=== PATIENT | female | born 1985 | race Asian ===

== ENCOUNTER → 2016-12-09 | Outpatient (REF) | payer BC ==
[2016-12-09 13:53] LABS: BASO % 0.5 % (0.0-1.0); EOS # 0.2 K/mm3 (0.0-0.50); EOS % 2.5 % (0.0-3.0); LARGE UNSTAINED CELL # 0.2 K/mm3 (0.0-0.4); LARGE UNSTAINED CELL % 1.8 % (0.0-4.0); LYMPH # 2.3 K/mm3 (1.5-4.5); LYMPH % 24.8 % (24.0-44.0); MEAN CORPUSCULAR HEMOGLOBIN 31.7 pg (27.0-33.0); MEAN CORPUSCULAR HGB CONC 33.1 g/dl (32.0-36.5); MEAN CORPUSCULAR VOLUME 95.8 fl (80.0-96.0); MONO # 0.3 K/mm3 (0.0-0.8); MONO % 3.6 % (0.0-5.0); NEUTROPHILS % 66.8 % (36.0-66.0); PLATELET COUNT, AUTOMATED 270 k/mm3 (150-450); RED CELL DISTRIBUTION WIDTH 12.9 % (11.5-14.5)
[2016-12-09 14:24] LABS: ALBUMIN 3.5 GM/DL (3.2-5.2); ALBUMIN/GLOBULIN RATIO 0.88 (1.00-1.93); ALKALINE PHOSPHATASE 68 U/L (45-117); ALT/SGPT 25 U/L (12-78); ANION GAP 10 MEQ/L (8-16); AST/SGOT 10 U/L (15-37); BILIRUBIN,TOTAL 0.3 MG/DL (0.2-1.0); BLOOD UREA NITROGEN 19 MG/DL (7-18); CARBON DIOXIDE LEVEL 26 MEQ/L (21-32); CHLORIDE LEVEL 105 MEQ/L (98-107); CHOLESTEROL LEVEL 215 MG/DL (<200); CREATININE FOR GFR 0.89 MG/DL (0.55-1.02); FREE T4 1.25 NG/DL (0.76-1.46); GLOMERULAR FILTRATION RATE > 60.0 (>60); GLUCOSE, FASTING 80 MG/DL (70-105); POTASSIUM SERUM 4.3 MEQ/L (3.5-5.1); SODIUM LEVEL 141 MEQ/L (136-145); TOTAL PROTEIN 7.5 GM/DL (6.4-8.2); TRIGLYCERIDES LEVEL 112 MG/DL (<150)
== END ==
LOC: M SFHCPLAZ 10:36
PROVIDERS: ATTEND Family Medicine
DX: I10 Essential (primary) hypertension (principal); E55.9 Vitamin D deficiency, unspecified

== ENCOUNTER → 2017-02-25 | Outpatient (REF) | payer BC | LOC: M WUC 17:01 | PROVIDERS: ATTEND Physician Assistant | DX: N39.0 Urinary tract infection, site not specified (principal) ==

== ENCOUNTER → 2017-03-18 | Outpatient (REF) | payer BC ==
[2017-03-18 18:49] LABS: MEAN CORPUSCULAR HEMOGLOBIN 30.8 pg (27.0-33.0); MEAN CORPUSCULAR HGB CONC 33.5 g/dl (32.0-36.5); MEAN CORPUSCULAR VOLUME 91.7 fl (80.0-96.0); WHITE BLOOD COUNT 6.8 K/mm3 (4.0-10.0)
[2017-03-18 20:01] LABS: HCG, SERUM QUANTITATIVE 3766 MIU/ML
== END ==
LOC: M LAB REF 17:25
PROVIDERS: ATTEND Advanced Practice Midwife
DX: O36.80X0 Pregnancy with inconclusive fetal viability, not applicable or unspecified (principal); O99.280 Endocrine, nutritional and metabolic diseases complicating pregnancy, unspecified trimester; E03.9 Hypothyroidism, unspecified; Z3A.00 Weeks of gestation of pregnancy not specified

== ENCOUNTER → 2017-05-06 | Outpatient (REF) | payer BC ==
[2017-05-06 18:02] LABS: FREE T4 0.95 NG/DL (0.76-1.46)
== END ==
LOC: M LAB REF 16:32
PROVIDERS: ATTEND Advanced Practice Midwife
DX: E03.9 Hypothyroidism, unspecified (principal)

== ENCOUNTER → 2017-05-08 | Outpatient (REF) | payer BC ==
[2017-05-08 14:48] LABS: VITAMIN B12 LEVEL 330 PG/ML (247-911)
[2017-05-08 15:04] LABS: ALBUMIN 3.2 GM/DL (3.2-5.2); ALBUMIN/GLOBULIN RATIO 0.91 (1.00-1.93); ALKALINE PHOSPHATASE 52 U/L (45-117); ALT/SGPT 28 U/L (12-78); ANION GAP 9 MEQ/L (8-16); AST/SGOT 11 U/L (15-37); BILIRUBIN,TOTAL 0.3 MG/DL (0.2-1.0); BLOOD UREA NITROGEN 9 MG/DL (7-18); CARBON DIOXIDE LEVEL 25 MEQ/L (21-32); CHLORIDE LEVEL 104 MEQ/L (98-107); CREATININE FOR GFR 0.43 MG/DL (0.55-1.02); FERRITIN 14 NG/ML (8-252); GLOMERULAR FILTRATION RATE > 60.0 (>60); GLUCOSE, FASTING 89 MG/DL (70-105); MAGNESIUM LEVEL 1.9 MG/DL (1.8-2.4); PERCENT SATURATION 37.6 % (13.2-45.0); POTASSIUM SERUM 4.3 MEQ/L (3.5-5.1); SODIUM LEVEL 138 MEQ/L (136-145); TOTAL IRON BINDING CAPACITY 303 UG/DL (250-450); TOTAL PROTEIN 6.7 GM/DL (6.4-8.2)
[2017-05-11 10:52] LABS: ALBUMIN 3.63 GM/DL (3.29-5.55); ALBUMIN % 54.2 % (55.8-66.1); GAMMA GLOBULIN % 14.5 % (11.1-18.8)
[2017-05-12 10:36] LABS: PRETREATED FOLATE FOR RBCFOL 14.1 NG/ML
== END ==
LOC: M SFHCPLAZ 12:06
PROVIDERS: ATTEND Family Medicine
DX: D75.89 Other specified diseases of blood and blood-forming organs (principal); I10 Essential (primary) hypertension; E66.9 Obesity, unspecified

== ENCOUNTER → 2017-05-11 | Outpatient (CLI) | payer BC ==
[2017-05-11 18:55] LABS: ALT/SGPT 23 U/L (12-78); AST/SGOT 9 U/L (15-37); BILIRUBIN,TOTAL 0.2 MG/DL (0.2-1.0); CREATININE FOR GFR 0.47 MG/DL (0.55-1.02); GLOMERULAR FILTRATION RATE > 60.0 (>60); URIC ACID 3.4 MG/DL (2.6-6.0)
== END ==
LOC: M LAB 17:59
PROVIDERS: ATTEND Advanced Practice Midwife
DX: O10.011 Pre-existing essential hypertension complicating pregnancy, first trimester (principal)

== ENCOUNTER → 2017-07-15 | Outpatient (REF) | payer BC ==
[2017-07-15 14:07] LABS: FREE T4 0.9 NG/DL (0.76-1.46)
== END ==
LOC: M LAB REF 13:21
PROVIDERS: ATTEND Advanced Practice Midwife
DX: E03.9 Hypothyroidism, unspecified (principal)

== ENCOUNTER → 2017-08-27 | Outpatient (CLI) | payer BC ==
[2017-08-27 18:42] LABS: GLUCOSE CHALLENGE TEST 1 HOUR 107 MG/DL (LESS THAN 140)
[2017-08-27 20:26] LABS: HEMATOCRIT 31.7 % (36.0-47.0); HEMOGLOBIN 10.4 g/dl (12.0-16.0); MEAN CORPUSCULAR HEMOGLOBIN 30.7 pg (27.0-33.0); MEAN CORPUSCULAR HGB CONC 32.8 g/dl (32.0-36.5); MEAN CORPUSCULAR VOLUME 93.5 fl (80.0-96.0); PLATELET COUNT, AUTOMATED 241 10^3/uL (150-450); RED BLOOD COUNT 3.39 10^6/uL (4.00-5.40); RED CELL DISTRIBUTION WIDTH 13.4 % (11.5-14.5); WHITE BLOOD COUNT 8.4 10^3/uL (4.0-10.0)
[2017-08-31 08:57] LABS: AB SCREEN (INDIRECT COOMBS)VIS 1 1
== END ==
LOC: M WUC 12:36
DX: O09.892 Supervision of other high risk pregnancies, second trimester (principal); Z67.11 Type A blood, Rh negative; Z3A.25 25 weeks gestation of pregnancy
CPT/HCPCS: 82950

== ENCOUNTER → 2017-09-10 | Outpatient (REF) | payer BC ==
[2017-09-10 13:51] LABS: FREE T4 0.99 NG/DL (0.76-1.46)
== END ==
LOC: M LAB REF 13:04
DX: E03.9 Hypothyroidism, unspecified (principal)

== ENCOUNTER → 2017-10-14 | Outpatient (REF) | payer BC | LOC: M LAB REF 13:01 | DX: O09.893 Supervision of other high risk pregnancies, third trimester (principal); Z3A.00 Weeks of gestation of pregnancy not specified | CPT/HCPCS: 87081; 87186 ==

== ENCOUNTER → 2017-10-28 | Outpatient (REF) | payer BC ==
[2017-10-28 14:34] LABS: FREE T4 0.93 NG/DL (0.76-1.46)
== END ==
LOC: M LAB REF 12:57
DX: E03.9 Hypothyroidism, unspecified (principal)
CPT/HCPCS: 84443

== ENCOUNTER 2017-11-13 06:17 | Inpatient (IN) | payer BC ==
[2017-11-13] MEDS: LACTATED RINGER'S 1000 ML IV (04:00)
[2017-11-13 08:37] LABS: HEMATOCRIT 32.6 % (36.0-47.0); HEMOGLOBIN 11.1 g/dl (12.0-15.5); MEAN CORPUSCULAR HEMOGLOBIN 30.7 pg (27.0-33.0); MEAN CORPUSCULAR VOLUME 90.1 fl (80.0-96.0); PLATELET COUNT, AUTOMATED 225 10^3/uL (150-450); RED BLOOD COUNT 3.62 10^6/uL (4.00-5.40); RED CELL DISTRIBUTION WIDTH 13.2 % (11.5-14.5); WHITE BLOOD COUNT 8.8 10^3/uL (4.0-10.0)
[2017-11-13] MEDS: VANCOMYCIN HCL 1,000 MG, VIAL MATE ADAPTER 1 EACH in D5W 250 ML IV ×2 (08:55→20:55)
[2017-11-13] MEDS: miSOPROStol 50 MCG 1/2 TAB (S0191) PO ×3 (09:04→17:05)
[2017-11-13 09:06] LABS: ALT/SGPT 20 U/L (12-78); AST/SGOT 19 U/L (7-37); BILIRUBIN,TOTAL 0.3 MG/DL (0.2-1.0); CREATININE FOR GFR 0.61 MG/DL (0.55-1.30); GLOMERULAR FILTRATION RATE > 60.0 (>60); LDH LACTATE DEHYDROGENASE 166 U/L (84-246); URIC ACID 5.6 MG/DL (2.6-6.0)
[2017-11-13 09:31] LABS: AMPHETAMINES URINE REFLEX NEGATIVE (NEGATIVE); BARBITURATES URINE REFLEX NEGATIVE (NEGATIVE); BENZODIAZEPINES URINE REFLEX NEGATIVE (NEGATIVE); CANNABINOIDS URINE REFLEX NEGATIVE (NEGATIVE); COCAINE METABOLITE URINE REFLE NEGATIVE (NEGATIVE); METHADONE URINE REFLEX NEGATIVE (NEGATIVE); OPIATES URINE REFLEX NEGATIVE (NEGATIVE); PHENCYCLIDINE URINE REFLEX NEGATIVE (NEGATIVE)
[2017-11-13] MEDS: LABETALOL 200 MG TAB PO (20:54)
[2017-11-13] MEDS: LR 1,000 ML IV (21:01)
[2017-11-13] MEDS ORDERED: OXYTOCIN 30 UNITS IN 0.9% NaCl 500ML IV BAG (J2590) As Ordered (21:03)
[2017-11-13] MEDS: OXYTOCIN DRIP 30 UNITS in APPROPRIATE DILUENT 1 EA IV (21:09)
[2017-11-13] MEDS: PROMETHAZINE INJ 25 MG/ML VIAL (J2550) IM (22:24)
[2017-11-13] MEDS: BUTORPHANOL 2 MG/ML INJ (J0595) IV (22:25)
[2017-11-14] MEDS ORDERED: FENTANYL 2MCG/ML ROPIVACAINE 0.2% IN 0.9% NACL 200ML IVBAG As Ordered (04:10)
[2017-11-14] MEDS: LR 1,000 ML IV (05:01)
[2017-11-14] MEDS ORDERED: ePHEDrine SULFATE 25 MG/5 ML(5MG/ML) SYRINGE IV (05:15)
[2017-11-14] MEDS ORDERED: EPIDURAL COMMENT XX (05:15)
[2017-11-14] MEDS ORDERED: FENTANYL/ROPIVACAINE/NACL BAG 200 ML EPIDURAL (05:15)
[2017-11-14] MEDS ORDERED: LACTATED RINGER'S 1000 ML IV (05:15)
[2017-11-14] MEDS ORDERED: EPIDURAL/PCA KEYS XX (05:15)
[2017-11-14] MEDS ORDERED: ONDANSETRON 4MG/2ML VIAL (J2405) IV (05:15)
[2017-11-14] MEDS ORDERED: NALOXONE INJ 0.4 MG/1 ML VIAL (J2310) IV (05:15)
[2017-11-14] MEDS ORDERED: diphenhydrAMINE INJ 50MG/ML VIAL (J1200) IV (05:15)
[2017-11-14] MEDS ORDERED: REFRIGERATOR IV KEYS XX (05:15)
[2017-11-14] MEDS: LEVOTHYROXINE 37.5MCG PER 1/2TAB (0.0375MG) PO (06:23)
[2017-11-14] MEDS: PRENATAL VITAMINS CHEWABLE TABLET PO (09:00)
[2017-11-14] MEDS: VANCOMYCIN HCL 1,000 MG, VIAL MATE ADAPTER 1 EACH in D5W 250 ML IV (09:15)
[2017-11-14] MEDS ORDERED: DIBUCAINE 1% OINTMENT 30GM TOP (10:15)
[2017-11-14] MEDS ORDERED: MEASLES,MUMPS,RUBELLA VACCINE INJ (MMR-II) (90707) SC (10:15)
[2017-11-14] MEDS ORDERED: METHYLERGONOVINE MALEATE 0.2 MG TAB PO (10:15)
[2017-11-14] MEDS ORDERED: ANUSOL HC CREAM 30GM TOP (10:15)
[2017-11-14] MEDS: IBUPROFEN 800 MG TAB PO ×2 (10:42→20:06)
[2017-11-14] MEDS: LABETALOL 200 MG TAB PO ×2 (10:43→21:28)
[2017-11-14] MEDS: OXYTOCIN DRIP 30 UNITS in APPROPRIATE DILUENT 1 EA IV (19:31)
[2017-11-14] MEDS: ACETAMINOPHEN 500 MG TAB PO (21:29)
[2017-11-15] MEDS: ACETAMINOPHEN 500 MG TAB PO ×3 (03:31→22:01)
[2017-11-15] MEDS: IBUPROFEN 800 MG TAB PO ×2 (05:50→16:08)
[2017-11-15] MEDS: LEVOTHYROXINE 37.5MCG PER 1/2TAB (0.0375MG) PO (05:50)
[2017-11-15] MEDS: PRENATAL VITAMINS CHEWABLE TABLET PO (08:46)
[2017-11-15] MEDS: LABETALOL 200 MG TAB PO ×2 (08:46→21:57)
[2017-11-15] MEDS: DOCUSATE SODIUM 100 MG CAP PO (14:17)
[2017-11-15 17:09] LABS: FETAL SCREEN PROF. 1 1
[2017-11-15] MEDS: RHOGAM 300 MCG (1500 IU) INJ (J2790) IM (17:28)
[2017-11-16] MEDS: IBUPROFEN 800 MG TAB PO (06:20)
[2017-11-16] MEDS: LEVOTHYROXINE 37.5MCG PER 1/2TAB (0.0375MG) PO (06:21)
[2017-11-16] MEDS: PRENATAL VITAMINS CHEWABLE TABLET PO (09:55)
[2017-11-16] MEDS: ADACEL/BOOSTRIX VACCINE (DIPHTH/PERTUSS/ACELL/TETANUS)0.5ML SYR (90715) IM (09:55)
[2017-11-16] MEDS: LABETALOL 200 MG TAB PO (09:56)
== END 2017-11-16 12:20 | disposition home or self-care (01) | DRG 560 ==
LOC: M LDI 06:17 → M OBS 11-14 12:19
PROC: 3E0P7GC Introduction of Other Therapeutic Substance into Female Reproductive, Via Natural or Artificial Opening (ICD-10-PCS; 2017-11-13)
PROC: 10E0XZZ Delivery of Products of Conception, External Approach (ICD-10-PCS; principal; 2017-11-14)
DX: O10.02 Pre-existing essential hypertension complicating childbirth (principal); E03.9 Hypothyroidism, unspecified; O99.284 Endocrine, nutritional and metabolic diseases complicating childbirth; Z3A.39 39 weeks gestation of pregnancy; O99.824 Streptococcus B carrier state complicating childbirth; O69.1XX0 Labor and delivery complicated by cord around neck, with compression, not applicable or unspecified; Z37.0 Single live birth

== ENCOUNTER → 2017-12-25 | Outpatient (REF) | payer BC ==
[2017-12-25 17:38] LABS: BASO # 0.1 10^3/uL (0.0-0.2); BASO % 0.6 % (0.0-1.0); EOS # 0.6 10^3/uL (0.0-0.50); HEMATOCRIT 35.1 % (36.0-47.0); HEMOGLOBIN 11.3 g/dl (12.0-15.5); IMMATURE GRANULOCYTE % 0.2 % (0-3.0); LYMPH # 2.9 10^3/uL (1.5-4.5); LYMPH % 35.5 % (24.0-44.0); MEAN CORPUSCULAR HGB CONC 32.2 g/dl (32.0-36.5); MEAN CORPUSCULAR VOLUME 90.2 fl (80.0-96.0); MONO # 0.6 10^3/uL (0.0-0.8); MONO % 7.5 % (0.0-5.0); NEUTROPHILS % 49.2 % (36.0-66.0); PLATELET COUNT, AUTOMATED 273 10^3/uL (150-450); RED BLOOD COUNT 3.89 10^6/uL (4.00-5.40); RED CELL DISTRIBUTION WIDTH 12.6 % (11.5-14.5); RETICULOCYTE # 54.8 10^9/L (17-77); RETICULOCYTE % 1.4 % (0.5-1.5)
[2017-12-25 18:16] LABS: ESTIMATED AVERAGE GLUCOSE 88 MG/DL (60-110); HEMOGLOBIN A1c 4.7 %
[2017-12-25 18:34] LABS: MALB URINE SIEMENS 20.3 MG/L; MAU/CREAT RATIO 8.9 MCG/MG (0.0-30.0)
[2017-12-25 18:55] LABS: APPEARANCE, URINE HAZY (CLEAR); BACTERIA, URINE AUTO NEGATIVE (NEGATIVE); BILIRUBIN, URINE AUTO NEGATIVE (NEGATIVE); BLOOD, URINE BLOOD 1+ (NEGATIVE); COLOR, URINE YELLOW (YELLOW); GLUCOSE, URINE (UA) AUTO NEGATIVE (NEGATIVE); KETONE, URINE AUTO NEGATIVE (NEGATIVE); LEUKOCYTE ESTERASE, URINE AUTO 2+ (NEGATIVE); MUCUS, URINE SMALL (NEGATIVE); NITRITE, URINE AUTO NEGATIVE (NEGATIVE); PROTEIN, URINE AUTO NEGATIVE (NEGATIVE); RBC, URINE AUTO 2 /HPF (0-3); SPECIFIC GRAVITY URINE AUTO 1.025 (1.002-1.035); SQUAMOUS EPITHELIAL CELL UR AU 9 /HPF (0-6); UROBILINOGEN, URINE AUTO 0.2 mg/dL (0.0-2.0); WBC, URINE AUTO 18 /HPF (0-3)
[2017-12-25 18:57] LABS: ALBUMIN 3.7 GM/DL (3.2-5.2); ALBUMIN/GLOBULIN RATIO 1.06 (1.00-1.93); ALKALINE PHOSPHATASE 82 U/L (45-117); ALT/SGPT 28 U/L (12-78); ANION GAP 8 MEQ/L (8-16); AST/SGOT 16 U/L (7-37); BILIRUBIN,TOTAL 0.4 MG/DL (0.2-1.0); BLOOD UREA NITROGEN 13 MG/DL (7-18); CALCIUM LEVEL 8.7 MG/DL (8.5-10.1); CARBON DIOXIDE LEVEL 28 MEQ/L (21-32); CHLORIDE LEVEL 105 MEQ/L (98-107); CREATININE FOR GFR 0.77 MG/DL (0.55-1.30); FREE T4 0.95 NG/DL (0.76-1.46); GLOMERULAR FILTRATION RATE > 60.0 (>60); GLUCOSE, FASTING 69 MG/DL (70-100); POTASSIUM SERUM 4.3 MEQ/L (3.5-5.1); SODIUM LEVEL 141 MEQ/L (136-145); TOTAL PROTEIN 7.2 GM/DL (6.4-8.2)
[2017-12-25 19:17] LABS: VITAMIN B12 LEVEL 874 PG/ML (247-911)
[2017-12-30 17:41] LABS: INSULIN LEVEL 9.6 uIU/mL (2.6-24.9)
== END ==
LOC: M SFHCPLAZ 14:55
DX: R73.01 Impaired fasting glucose (principal); D75.89 Other specified diseases of blood and blood-forming organs; I10 Essential (primary) hypertension; E03.9 Hypothyroidism, unspecified; D50.9 Iron deficiency anemia, unspecified
CPT/HCPCS: 83525

== ENCOUNTER → 2018-01-01 | Outpatient (REF) | payer BC | LOC: M SFHCPLAZ 17:19 | DX: R30.0 Dysuria (principal) | CPT/HCPCS: 87086 ==

== ENCOUNTER → 2018-01-11 | Outpatient (REF) | payer BC | LOC: M LAB REF 09:11 | DX: J06.9 Acute upper respiratory infection, unspecified (principal) | CPT/HCPCS: 87081 ==

== ENCOUNTER → 2018-01-27 | Outpatient (CLI) | payer BC, MEDICAID ==
[~2018-01-27] MED LIST: PROHANCE 279.3MG/ML 15ML VIAL (A9576) As Ordered; PROHANCE 279.3MG/ML 5ML VIAL (A9576) As Ordered
== END ==
LOC: M RAD 15:39
DX: R20.2 Paresthesia of skin (principal)
CPT/HCPCS: A9576

== ENCOUNTER 2018-01-29 09:01 | Day surgery (SDC) | payer BC, MEDICAID ==
[2018-01-29] MEDS ORDERED: NEOSTIGMINE 10 MG/10 ML VIAL (J2710) As Ordered ×2 (09:12)
[2018-01-29] MEDS ORDERED: PROPOFOL 200 MG/20 ML VIAL As Ordered ×2 (09:12)
[2018-01-29] MEDS ORDERED: ONDANSETRON 4MG/2ML VIAL (J2405) As Ordered ×2 (09:12)
[2018-01-29] MEDS ORDERED: KETOROLAC 60 MG/2 ML VIAL (J1885) As Ordered ×2 (09:12)
[2018-01-29] MEDS ORDERED: dexameTHASONE 4 MG/ML 1ML VIAL (J1100) As Ordered ×2 (09:12)
[2018-01-29] MEDS ORDERED: LIDOCAINE 2% INJ 100 MG/5 ML SDV (FOR ANES.) As Ordered ×2 (09:12)
[2018-01-29] MEDS ORDERED: GLYCOPYRROLATE INJ 0.2 MG/ML 2 ML VIAL As Ordered ×2 (09:12)
[2018-01-29] MEDS ORDERED: MIDAZOLAM INJ 2 MG/2 ML VIAL (J2250) As Ordered ×2 (09:13)
[2018-01-29] MEDS ORDERED: fentaNYL 100 MCG/2 ML INJECTION (J3010) As Ordered ×4 (09:13→13:34)
[2018-01-29] MEDS ORDERED: ROCURONIUM BROMIDE 50 MG/5 ML VIAL As Ordered ×2 (09:14)
[2018-01-29] MEDS ORDERED: ceFAZolin SOD 1 GM in D5W MINI-BAG PLUS 50 ML IV (09:15)
[2018-01-29] MEDS ORDERED: LIDOCAINE 1% MDV 20ML VIAL SQ ×2 (09:15)
[2018-01-29 09:29] LABS: HEMATOCRIT 34.3 % (36.0-47.0); HEMOGLOBIN 11.3 g/dl (12.0-15.5); MEAN CORPUSCULAR HEMOGLOBIN 28.5 pg (27.0-33.0); MEAN CORPUSCULAR HGB CONC 32.9 g/dl (32.0-36.5); MEAN CORPUSCULAR VOLUME 86.6 fl (80.0-96.0); PLATELET COUNT, AUTOMATED 277 10^3/uL (150-450); RED BLOOD COUNT 3.96 10^6/uL (4.00-5.40); RED CELL DISTRIBUTION WIDTH 12.4 % (11.5-14.5); WHITE BLOOD COUNT 7.8 10^3/uL (4.0-10.0)
[2018-01-29 10:25] LABS: CONTROL LINE UCG INT CTR LINE PRESENT; URINE PREG TEST NEGATIVE (NEGATIVE)
[2018-01-29] MEDS: LABETALOL 200 MG TAB PO ×2 (10:43)
[2018-01-29] MEDS: LR 1,000 ML IV ×2 (10:44)
[2018-01-29] MEDS: ACETAMINOPHEN 650 MG SUPP As Ordered ×2 (13:00)
[2018-01-29] MEDS: BUPIVACAINE/EPIN 0.25% 30 ML VIAL As Ordered ×4 (13:30)
[2018-01-29] MEDS ORDERED: NORCO, ANEXSIA 5/325MG TABLET (HYDROcodone/ACETAMINOPHEN) As Ordered ×2 (13:34)
[2018-01-29] MEDS: NORCO, ANEXSIA 5/325MG TABLET (HYDROcodone/ACETAMINOPHEN) PO ×4 (13:35→14:05)
[2018-01-29] MEDS: fentaNYL 100 MCG/2 ML INJECTION (J3010) IV ×8 (13:35→13:50)
[2018-01-29] MEDS ORDERED: ONDANSETRON 4MG/2ML VIAL (J2405) IV ×2 (13:45)
[2018-01-29] MEDS ORDERED: LR 1,000 ML IV ×2 (13:45)
[2018-01-29] MEDS ORDERED: PERCOCET 5MG/325MG TAB PO ×2 (13:45)
[2018-01-29] MEDS ORDERED: IBUPROFEN 800 MG TAB PO ×2 (15:00)
== END 2018-01-29 16:25 | disposition home or self-care (01) ==
LOC: M SDC 09:01
DX: Z30.2 Encounter for sterilization (principal); I10 Essential (primary) hypertension; E03.9 Hypothyroidism, unspecified; M50.30 Other cervical disc degeneration, unspecified cervical region; R56.9 Unspecified convulsions; G43.909 Migraine, unspecified, not intractable, without status migrainosus; Z88.0 Allergy status to penicillin; Z79.899 Other long term (current) drug therapy
CPT/HCPCS: 58671

== ENCOUNTER → 2018-02-10 | Outpatient (CLI) | payer BC, MEDICAID ==
[~2018-02-10] MED LIST changes: +GASTROGRAFIN SOLUTION 30ML (Q9963) As Ordered; +ISOVUE-370 76% 100ML VIAL (Q9967) As Ordered; -PROHANCE 279.3MG/ML 15ML VIAL (A9576) As Ordered; -PROHANCE 279.3MG/ML 5ML VIAL (A9576) As Ordered
== END ==
LOC: M RAD 14:49
DX: R20.2 Paresthesia of skin (principal); M50.221 Other cervical disc displacement at C4-C5 level; M47.892 Other spondylosis, cervical region
CPT/HCPCS: 72141

== ENCOUNTER → 2018-04-15 | Outpatient (CLI) | payer MEDICAID, BC | LOC: M RAD 14:30 | DX: N63.22 Unspecified lump in the left breast, upper inner quadrant (principal) | CPT/HCPCS: 76642 ==

== ENCOUNTER → 2018-05-14 | Outpatient (REF) | payer MEDICAID ==
[2018-05-14 17:34] LABS: BASO # 0.1 10^3/uL (0.0-0.2); BASO % 0.8 % (0.0-1.0); EOS # 0.5 10^3/uL (0.0-0.50); EOS % 6.2 % (0.0-3.0); HEMATOCRIT 36.7 % (36.0-47.0); HEMOGLOBIN 11.5 g/dl (12.0-15.5); IMMATURE GRANULOCYTE % 0.4 % (0-3.0); LYMPH # 2.7 10^3/uL (1.5-4.5); LYMPH % 35.3 % (24.0-44.0); MEAN CORPUSCULAR HEMOGLOBIN 27.4 pg (27.0-33.0); MEAN CORPUSCULAR HGB CONC 31.3 g/dl (32.0-36.5); MEAN CORPUSCULAR VOLUME 87.4 fl (80.0-96.0); MONO # 0.6 10^3/uL (0.0-0.8); MONO % 8.3 % (0.0-5.0); NEUTROPHILS # 3.7 10^3/uL (1.8-7.7); PLATELET COUNT, AUTOMATED 305 10^3/uL (150-450); RED CELL DISTRIBUTION WIDTH 14.4 % (11.5-14.5); RETIC HEMOGLOBIN EQUIVALENT 31.8 pg (24-36); RETICULOCYTE # 44.1 10^9/L (17-77); RETICULOCYTE % 1.1 % (0.5-1.5); WHITE BLOOD COUNT 7.6 10^3/uL (4.0-10.0)
[2018-05-14 17:52] LABS: ESTIMATED AVERAGE GLUCOSE 105 MG/DL (60-110); HEMOGLOBIN A1c 5.3 %
[2018-05-14 17:56] LABS: ALBUMIN 3.8 GM/DL (3.2-5.2); ALBUMIN/GLOBULIN RATIO 1.06 (1.00-1.93); ALKALINE PHOSPHATASE 63 U/L (45-117); ALT/SGPT 41 U/L (12-78); ANION GAP 9 MEQ/L (8-16); AST/SGOT 19 U/L (7-37); BILIRUBIN,TOTAL 0.3 MG/DL (0.2-1.0); BLOOD UREA NITROGEN 15 MG/DL (7-18); C REACTIVE PROTEIN QUANTITATIV 0.34 MG/DL (0.00-0.30); CALCIUM LEVEL 9.3 MG/DL (8.5-10.1); CARBON DIOXIDE LEVEL 28 MEQ/L (21-32); CHLORIDE LEVEL 105 MEQ/L (98-107); CREATININE FOR GFR 0.66 MG/DL (0.55-1.30); GLOMERULAR FILTRATION RATE > 60.0 (>60); GLUCOSE, FASTING 77 MG/DL (70-100); POTASSIUM SERUM 4.6 MEQ/L (3.5-5.1); PTH INTACT 47.8 PG/ML (18.5-88.0); SODIUM LEVEL 142 MEQ/L (136-145); TOTAL PROTEIN 7.4 GM/DL (6.4-8.2)
[2018-05-14 19:29] LABS: ERYTHROCYTE SEDIMENTATION RATE 26 mm/hr (0-20)
[2018-05-18 00:21] LABS: ANA (HEP2) Negative (.)
[2018-05-18 10:32] LABS: DRVV SCREEN 40.8 SEC
== END ==
LOC: M SFHCPLAZ 15:31
DX: D50.9 Iron deficiency anemia, unspecified (principal); R73.01 Impaired fasting glucose; I10 Essential (primary) hypertension; E55.9 Vitamin D deficiency, unspecified; Z87.898 Personal history of other specified conditions

== ENCOUNTER → 2018-05-19 | Outpatient (REF) | payer MEDICAID ==
[2018-05-19 13:59] LABS: RHEUMATOID FACTOR QUANT < 10.0 IU/ML (<15.0); TOTAL PROTEIN 7.2 GM/DL (6.4-8.2)
[2018-05-19 14:35] LABS: ERYTHROCYTE SEDIMENTATION RATE 18 mm/hr (0-20)
[2018-05-20 12:52] LABS: ALBUMIN 3.95 GM/DL (3.29-5.55); ALBUMIN % 54.9 % (55.8-66.1); ALPHA-1-GLOBULIN % 4.1 % (2.9-4.9); ALPHA-2-GLOBULINS 0.81 GM/DL (0.42-0.99); ALPHA-2-GLOBULINS % 11.3 % (7.1-11.8); BETA-1-GLOBULINS 0.48 GM/DL (0.28-0.60); BETA-1-GLOBULINS % 6.6 % (4.7-7.2); BETA-2-GLOBULINS 0.51 GM/DL (0.19-0.55); BETA-2-GLOBULINS % 7.1 % (3.2-6.5); GAMMA GLOBULINS 1.15 GM/DL (0.65-1.58)
[2018-05-23 14:07] LABS: ANTI DOUBLE STRAND-DNA AB 1 IU/mL (0-9); ANTINUCLEAR ANTIBODIES DIRECT Negative (Negative); CERULOPLASMIN 30.9 mg/dL (19.0-39.0); COPPER PLASMA 135 ug/dL (72-166); LEAD BLOOD ADULT <1 ug/dL (0-4); MERCURY LEVEL None Detected ug/L (0.0-14.9); SJOGREN'S ANTI SS-A <0.2 AI (0.0-0.9); SJOGREN'S ANTI SS-B <0.2 AI (0.0-0.9); VITAMIN B1 LEVEL WHOLE BLOOD 113.8 nmol/L (66.5-200.0); VITAMIN B6,PYRIDOXAL PHOSPHATE 5.6 ug/L (2.0-32.8); VITAMIN E(ALPHA TOCOPHEROL) 8.7 mg/L (5.9-19.4); VITAMIN E(GAMMA TOCOPHEROL) 1.4 mg/L (0.7-4.9)
== END ==
LOC: M LABNEURO 10:15
DX: R20.0 Anesthesia of skin (principal)
CPT/HCPCS: 82525

== ENCOUNTER → 2018-08-24 | Outpatient (CLI) | payer MEDICAID ==
[~2018-08-24] MED LIST changes: +ANTA500C PO; +B121000T PO; -GASTROGRAFIN SOLUTION 30ML (Q9963) As Ordered; +IBUP-1114 PO; -ISOVUE-370 76% 100ML VIAL (Q9967) As Ordered; +LABE20TAB PO; +LEVO25TA5 PO; +MAPA500T2 PO; +PRENTAB9 PO; +VITA-110 PO; +VITA100067 PO; +VITA100072 PO
--- NOTE | 2018-09-06 00:38 | ECWPNPC ---
PATIENT NAME: RONIT GUZMAN : 1985 GENDER: FEMALE VISIT DATE: 08/24/2018 DISCHARGE DATE: 08/24/18 1648 VISIT LOCKED DATE TIME: PHYSICIAN: SHANT SELF MD PHYSICIAN PAGER NO: [phone] RESOURCE: SHANT SELF MD REASON FOR APPOINTMENT 1. PRE OP SPINAL TAP HISTORY OF PRESENT ILLNESS HISTORY OF PRESENT ILLNESS: PAIN THE PATIENT DESCRIBES THE PAIN... 33 YEAR OLD FEMALE PATIENT WITH A HISTORY OF NEUROLOGICAL CHANGES. THE PATIENT WAS REFERRED TO US BY DR. PASTRANA FOR A SPINAL TAP AND IS HERE TODAY FOR A PRE SEDATION PHYSICAL. PATIENT DENIES UNEXPLAINABLE WEIGHT LOSS, FEVER, CHILLS, NEW CHANGES ON HER URINARY OR BOWEL CONTROL. FALL RISK SCREENING: SCREENING :NO FALLS IN THE PAST YEAR CURRENT MEDICATIONS TAKING VITAMIN D (CHOLECALCIFEROL) 5000 TABLET 1 TABLET ORALLY DAILY TAKING FERROUS SULFATE 325 (65 FE) MG TABLET 1 TABLET ORALLY ONCE A DAY TAKING VITAMIN B12 1000 MCG TABLET EXTENDED RELEASE 1 TABLET ORALLY ONCE A DAY TAKING TIZANIDINE HCL 2 MG CAPSULE 1 CAPSULE NEEDED ORALLY THREE TIMES A DAY PRN SPASM TAKING CELECOXIB 200 MG CAPSULE 1 CAPSULE WITH FOOD ORALLY ONCE A DAY TAKING LEVOTHYROXINE SODIUM 25 MCG TABLET 1.5 TABLET ON AN EMPTY STOMACH IN THE MORNING ORALLY ONCE A DAY TAKING LABETALOL HCL 100 MG TABLET 1 TABLET ORALLY TWICE A DAY TAKING BACTROBAN 2 % CREAM 1 APPLICATION TO AFFECTED AREA EXTERNALLY BID TO FACE/NECK/CHEST AND INTRANASAL NOT-TAKING COLACE 100 MG CAPSULE 1 CAPSULE ORALLY BID NOT-TAKING HIBICLENS 4 % LIQUID DIRECTED EXTERNALLY DAILY C PUMP BOTTLE MEDICATION LIST REVIEWED AND RECONCILED WITH THE PATIENT PAST MEDICAL HISTORY HYPERTENSION MIGRAINE HEADACHES, COMMON TYPE IFG OBESITY RESTLESS LEG SYNDROME ALLERGIC RHINITIS DEPRESSION/PANIC DISORDER/INSOMNIA IRON DEFICIENCY ANEMIA HYPOTHYROIDISM-01/2014 -TPO AB CERVICAL DJD-ML MODERATE LOSIS C C4/5 CENTRAL HNP AND C5/6 L BROAD HNP AND C6/7 L POSTEROLATERAL FOCAL HNP ? R UPPER THORACIC ZOSTER 06/2017 DXED/RXED BY VITAMIN D DEFICIENCY ALLERGIES PENICILLIN (FOR ALLERGIES USE ONLY): RASH: ALLERGY LINZESS: DIARRHEA: SIDE EFFECTS SURGICAL HISTORY CHOLECYSTECTOMY TUBES CLAMPED-DR. SAUCEDA[facility] 01/29/18 FAMILY HISTORY FATHER: MOTHER: ALIVE, HYPOTHYROID 3 BROTHER(S) - HEALTHY. 3 SON(S) , 1 DAUGHTER(S) - HEALTHY. DAD - SUICIDE. SOCIAL HISTORY GENERAL: TOBACCO USE ARE YOU A:NONSMOKER BMI CARE GOAL FOLLOW-UP ABOVE NORMAL BMI FOLLOW-UPGIVING ENCOURAGEMENT TO EXERCISE ALCOHOL SCREENING DID YOU HAVE A DRINK CONTAINING ALCOHOL IN THE PAST YEAR?YES HOW OFTEN DID YOU HAVE A DRINK CONTAINING ALCOHOL IN THE PAST YEAR?TWO TO FOUR TIMES A MONTH (2 POINTS) HOW MANY DRINKS DID YOU HAVE ON A TYPICAL DAY WHEN YOU WERE DRINKING IN THE PAST YEAR?3 OR 4 (1 POINT) HOW OFTEN DID YOU HAVE SIX OR MORE DRINKS ON ONE OCCASION IN THE PAST YEAR?NEVER (0 POINTS) POINTS3 INTERPRETATIONPOSITIVE SEXUAL HX HAD SEX IN THE LAST 12 MONTHS (VAGINAL, ORAL, OR ANAL)?YES WITHMEN ONLY USE PROTECTION?YES HOW OFTEN?MOST OF THE TIME HAVE YOU EVER HAD AN STD?NO ADVENTIST ADVENTIST NO PENTECOSTALISM BELIEFS THAT WOULD IMPACT HEALTH CARE. LANGUAGE LANGUAGES SPOKEN:MALAYSIAN LEARNING BARRIERS / SPECIAL NEEDS CHANGE FROM LAST VISIT?NO BARRIERS TO LEARNING?NO HEARING IMPAIRED?NO VISION IMPAIRED?YES :CORRECTIVE LENSES DOMESTIC VIOLENCE DO YOU FEEL SAFE IN YOUR ENVIRONMENT?YES PAIN CLINIC PFS, CLERGY, PUBLIC HEALTH REFERRALS HAS THE PATIENT BEEN EDUCATED REGARDING HIS/HER PLAN OF CARE?YES HAS THE PATIENT BEEN EDUCATED REGARDING PAIN, THE RISK FOR PAIN, THE IMPORTANCE OF EFFECTIVE PAIN MANAGEMENT, AND THE PAIN ASSESSMENT PROCESS?YES ADVANCE DIRECTIVE ADVANCE DIRECTIVE DISCUSSED WITH PATIENT:YES PT HAS NO ADVANCED DIRECTIVES, DECLINES INFORMATION OR ASSISTANCE AT THIS TIME REVIEWED WITH PATIENT 08/24/18 1601 LAS. HOSPITALIZATION/MAJOR DIAGNOSTIC PROCEDURE ABOVE -NORMAL PNC 11/2017 REVIEW OF SYSTEMS REVIEWED BY: PROVIDER: SHANT SELF MD . CONSTITUTIONAL: ANY CHANGE IN YOUR MEDICAL CONDITION? NO . CHILLS NO . FEVER NO . INFECTION: DO YOU HAVE NEW INFECTIONS? NO . DO YOU HAVE HISTORY OF MRSA? NO . MUSCULOSKELETAL: ANY NEW PATTERNS OF PAIN OR NUMBNESS? NO . GASTROENTEROLOGY: ANY NEW CHANGE IN BOWEL CONTROL? NO . GENITOURINARY: ANY NEW CHANGE IN BLADDER CONTROL? NO . IS THERE A CHANCE YOU COULD BE ? NO . HEMATOLOGY/LYMPH: DO YOU TAKE ANY BLOOD THINNERS? (FOR EXAMPLE- COUMADIN, PLAVIX, AGGRENOX, PLATEL, PRADAXA, OR XARELTO) NO . WHEN WAS YOUR LAST DOSE? DATE: TIME: . NEUROLOGY: HAVE YOU FALLEN IN THE PAST 12 MONTHS? NO . ANY NEW EXTREMITY NUMBNESS OR WEAKNESS? NO . CARDIOLOGY: DO YOU HAVE A PACEMAKER OR DEFIBRILLATOR? NO . RESPIRATORY: HAVE YOU BEEN SICK IN THE PAST WEEK? NO . FEVER NO . FLU LIKE SYMPTOMS? NO . COUGH NO . INTEGUMENTARY: DO YOU HAVE ANY RASHES OR OPEN SORES? NO . ALLERGIC/IMMUNO: ARE YOU ALLERGIC TO IV DYE? NO . ANY NEW ALLERGIES? NO . PSYCHIATRIC: DO YOU HAVE THOUGHTS OF HURTING YOURSELF OR SOMEONE ELSE? NO . ARE YOU ABUSED, NEGLECTED, OR IN AN UNSAFE ENVIRONMENT? NO . ENDOCRINOLOGY: ARE YOU DIABETIC? NO . OTHER: DO YOU NEED ANY PRESCRIPTIONS? NO . IF YES, PLEASE LIST: ____ . ANY NEW PROBLEMS WITH YOUR MEDICATIONS? NO . WHEN DID YOU LAST EAT? ____ . WHEN DID YOU LAST DRINK? ____ . WHAT DID YOU LAST DRINK? ____ . NAME OF PERSON DRIVING YOU HOME? ____ . DO YOU HAVE ANY OTHER QUESTIONS OR CONCERNS PT HERE FOR PRE SPINAL TAP VISIT . VITAL SIGNS WT 208.6 LBS, HT 63 IN, BMI 36.95 INDEX, BP 114/83 MM HG, HR 125 /MIN, RR 18 /MIN, TEMP 98.6 F, OXYGEN SAT % 97%, SAFE IN ENV? (Y/N) YES, NA INITIALS AW 1552, REVIEWED BY: CE. EXAMINATION GENERAL EXAMINATION: PATIENT IS ALERT O X 3 AND COOPERATIVE. LUNGS CLEAR, TO AUSCULTATION. HEART: NO MURMURS OR GALLOPS; FACIAL CRANIAL NERVES ARE GROSSLY NORMAL. GOOD SYMMETRY OF FACIAL MUSCLE MOVEMENT. NORMAL VISUAL VEGA. PATIENT HAS DIFFICULTY SITTING DUE TO TAILBONE PAIN. ASSESSMENTS NEUROLOGICAL SYMPTOMS - R29.90 (PRIMARY) MS PROTOCOL. TREATMENT NEUROLOGICAL SYMPTOMS CLINICAL NOTES: WE DISCUSSED SEVERAL ISSUES WITH MRS. GUZMAN'S CASE. THE PATIENT WILL COME IN FOR A SPINAL TAP IN A FEW WEEKS. WE DISCUSSED THE BENEFITS AND RISKS OF THE PROCEDURE AND THE PATIENT WOULD LIKE TO PROCEED. INSTRUCTIONS WERE GIVEN, QUESTIONS WERE ANSWERED, PATIENT REPORTS UNDERSTANDING AND AGREES WITH THE PLAN. I, ILIA ISLAS, DOCUMENTED THE ABOVE INFORMATION ACTING A SCRIBE FOR DR. SELF. I HAVE REVIEWED THE ABOVE DOCUMENT, WRITTEN BY ILIA SHIN AND I VERIFY THAT IT IS ACCURATE. PREVENTIVE MEDICINE PAIN CLINIC TEACHING: PROCEDURE TEACHING PT GIVEN WRITTEN AND VERBAL PRE-PROCEDURE INSTRUCTIONS FOR SPINAL TAP. PT VERBALIZES UNDERSTANDING OF ALL INSTRUCTIONS. TARYN MILIAN 08/24/2018 4:49:03 PM > . PROCEDURE CODES FA211 ESTABILISHED PATIENT [facility] FACILITY CHARGE G8427 CURRENT MEDS W/DOSAGES DOCUMENTED G8730 PAIN ASSESS POS TOOL F/U PLAN DOC DISPOSITION & COMMUNICATION FOLLOW UP 3 WEEKS ELECTRONICALLY SIGNED BY SHANT SELF MD, MD ON 09/05/2018 AT 06:52 PM EST DISCLAIMER : THIS IS A VISIT SUMMARY EXTRACTED FROM THE [employer] CHART. IT IS NOT A COPY OF THE [employer] PROGRESS NOTE. JOSE
== END ==
LOC: M PAIN 16:00
PROVIDERS: ATTEND Anesthesiology
DX: R29.90 Unspecified symptoms and signs involving the nervous system (principal); I10 Essential (primary) hypertension; G43.009 Migraine without aura, not intractable, without status migrainosus; F32.9 Major depressive disorder, single episode, unspecified; F41.0 Panic disorder [episodic paroxysmal anxiety]; G47.00 Insomnia, unspecified; D50.9 Iron deficiency anemia, unspecified; E03.9 Hypothyroidism, unspecified; E55.9 Vitamin D deficiency, unspecified; E66.9 Obesity, unspecified; Z68.36 Body mass index [BMI] 36.0-36.9, adult; Z88.0 Allergy status to penicillin; Z88.8 Allergy status to other drugs, medicaments and biological substances; Z79.899 Other long term (current) drug therapy

== ENCOUNTER → 2018-10-06 | Outpatient (CLI) | payer MEDICAID ==
[~2018-10-06] MED LIST changes: +LIDOCAINE 1% SDV INJ 30 ML VIAL As Ordered ONE; +MIDAZOLAM INJ 2 MG/2 ML VIAL (J2250) As Ordered ONE; +fentaNYL 100 MCG/2 ML INJECTION (J3010) As Ordered ONE
[2018-10-06 16:47] LABS: APPEARANCE, CSF CLEAR (CLEAR); COLOR, CSF COLORLESS (COLORLESS); CSF TUBE# CELL CNT TUBE 3
[2018-10-06 16:48] LABS: CSF TUBE# GLU TUBE 1; CSF TUBE# TP TUBE 1; GLUCOSE CSF 53 MG/DL (40-75); TOTAL PROTEIN,CSF 40 MG/DL (15-45)
--- NOTE | 2018-10-17 00:55 | ECWPNPC ---
PATIENT NAME: RONIT GUZMAN : 1985 GENDER: FEMALE VISIT DATE: 10/06/2018 DISCHARGE DATE: 10/06/18 1614 VISIT LOCKED DATE TIME: PHYSICIAN: SHANT SELF MD PHYSICIAN PAGER NO: [phone] RESOURCE: SHANT SELF MD REASON FOR APPOINTMENT 1. SPINAL TAP HISTORY OF PRESENT ILLNESS HISTORY OF PRESENT ILLNESS: PAIN THE PATIENT DESCRIBES THE PAIN... FALL RISK SCREENING: SCREENING : NO FALLS IN THE PAST YEAR. CURRENT MEDICATIONS TAKING VITAMIN D (CHOLECALCIFEROL) 5000 TABLET 1 TABLET ORALLY DAILY, NOTES: 10/06 599 TAKING COLACE 100 MG CAPSULE 1 CAPSULE ORALLY BID NEEDED, NOTES: NONE RECENT TAKING TIZANIDINE HCL 2 MG CAPSULE 1 CAPSULE NEEDED ORALLY THREE TIMES A DAY PRN SPASM, NOTES: NONE RECENT TAKING LEVOTHYROXINE SODIUM 25 MCG TABLET 1.5 TABLET ON AN EMPTY STOMACH IN THE MORNING ORALLY ONCE A DAY, NOTES: 10/06 599 TAKING LABETALOL HCL 100 MG TABLET 1 TABLET ORALLY TWICE A DAY, NOTES: 10/06 599 TAKING BACTROBAN 2 % CREAM 1 APPLICATION TO AFFECTED AREA EXTERNALLY BID TO FACE/NECK/CHEST AND INTRANASAL, NOTES: NONE RECENT TAKING FERROUS SULFATE 325 (65 FE) MG TABLET 1 TABLET ORALLY ONCE A DAY, NOTES: 10/06 599 TAKING VITAMIN B12 1000 MCG TABLET EXTENDED RELEASE 1 TABLET ORALLY ONCE A DAY, NOTES: 10/06 599 NOT-TAKING CELECOXIB 200 MG CAPSULE 1 CAPSULE WITH FOOD ORALLY ONCE A DAY MEDICATION LIST REVIEWED AND RECONCILED WITH THE PATIENT PAST MEDICAL HISTORY HYPERTENSION MIGRAINE HEADACHES, COMMON TYPE IFG OBESITY RESTLESS LEG SYNDROME ALLERGIC RHINITIS DEPRESSION/PANIC DISORDER/INSOMNIA IRON DEFICIENCY ANEMIA HYPOTHYROIDISM-01/2014 -TPO AB CERVICAL DJD-ML MODERATE LOSIS C C4/5 CENTRAL HNP AND C5/6 L BROAD HNP AND C6/7 L POSTEROLATERAL FOCAL HNP ? 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 01/29/18 FAMILY HISTORY FATHER: MOTHER: ALIVE, HYPOTHYROID 3 BROTHER(S) - HEALTHY. 3 SON(S) , 1 DAUGHTER(S) - HEALTHY. DAD - SUICIDE. SOCIAL HISTORY GENERAL: TOBACCO USE ARE YOU A:NONSMOKER LATEX QUESTIONNAIRE LATEX ALLERGY : HAVE YOU EVER DEVELOPED ANY TYPE OF REACTION AFTER HANDLING LATEX PRODUCTS SUCH RUBBER GLOVES, CONDOMS, DIAPHRAGMS, BALLOONS, SOCKS, OR UNDERWEAR?NO LATEX ALLERGY : HAVE YOU EVER DEVELOPED ANY TYPE OF REACTION DURING OR AFTER DENTAL APPOINTMENT, VAGINAL/RECTAL EXAMINATION, SURGICAL PROCEDURE, OR ANY OTHER EXPOSURE?NO LATEX RISK : HAVE YOU EVER HAD ANY DIFFICULTY BREATHING OR HIVES AFTER EATING OR HANDLING ANY FRUITS, OR VEGETABLES; SUCH KIWI, BANANAS, STONE FRUITS, OR CHESTNUTSNO LATEX RISK : DO YOU HAVE A PREVIOUS PERSONAL HISTORY OF MORE THAN NINE SURGERIES, SPINA BIFIDA, OR REPEATED CATHERTIZATIONS? NO LATEX RISK : ARE YOU FREQUENTLY EXPOSED TO LATEX PRODUCTS IN YOUR OCCUPATION?NO DATE ASKED : 10/06/2018 BMI CARE GOAL FOLLOW-UP ABOVE NORMAL BMI FOLLOW-UPGIVING ENCOURAGEMENT TO EXERCISE ALCOHOL SCREENING DID YOU HAVE A DRINK CONTAINING ALCOHOL IN THE PAST YEAR?YES HOW OFTEN DID YOU HAVE A DRINK CONTAINING ALCOHOL IN THE PAST YEAR?TWO TO FOUR TIMES A MONTH (2 POINTS) HOW MANY DRINKS DID YOU HAVE ON A TYPICAL DAY WHEN YOU WERE DRINKING IN THE PAST YEAR?3 OR 4 (1 POINT) HOW OFTEN DID YOU HAVE SIX OR MORE DRINKS ON ONE OCCASION IN THE PAST YEAR?NEVER (0 POINTS) POINTS3 INTERPRETATIONPOSITIVE SEXUAL HX HAD SEX IN THE LAST 12 MONTHS (VAGINAL, ORAL, OR ANAL)?YES WITHMEN ONLY USE PROTECTION?YES HOW OFTEN?MOST OF THE TIME HAVE YOU EVER HAD AN STD?NO SCIENTOLOGIST SCIENTOLOGIST NO SAMARITAN BELIEFS THAT WOULD IMPACT HEALTH CARE. LANGUAGE LANGUAGES SPOKEN:ROMANIAN LEARNING BARRIERS / SPECIAL NEEDS CHANGE FROM LAST VISIT?NO BARRIERS TO LEARNING?NO HEARING IMPAIRED?NO VISION IMPAIRED?YES :CORRECTIVE LENSES DOMESTIC VIOLENCE DO YOU FEEL SAFE IN YOUR ENVIRONMENT?YES PAIN CLINIC PFS, CLERGY, PUBLIC HEALTH REFERRALS HAS THE PATIENT BEEN EDUCATED REGARDING HIS/HER PLAN OF CARE?YES HAS THE PATIENT BEEN EDUCATED REGARDING PAIN, THE RISK FOR PAIN, THE IMPORTANCE OF EFFECTIVE PAIN MANAGEMENT, AND THE PAIN ASSESSMENT PROCESS?YES ADVANCE DIRECTIVE ADVANCE DIRECTIVE DISCUSSED WITH PATIENT:YES 10/06/18 PT HAS NO ADVANCED DIRECTIVES, DECLINES INFORMATION OR ASSISTANCE AT THIS TIME. AD REVIEWED WITH PATIENT 08/24/18 1601 LAS10/06/18 REVIEWED WITH PT. AD. HOSPITALIZATION/MAJOR DIAGNOSTIC PROCEDURE ABOVE -NORMAL PNC 11/2017 REVIEW OF SYSTEMS REVIEWED BY: PROVIDER: . CONSTITUTIONAL: ANY CHANGE IN YOUR MEDICAL CONDITION? NO . CHILLS NO . FEVER NO . INFECTION: DO YOU HAVE NEW INFECTIONS? NO . DO YOU HAVE HISTORY OF MRSA? NO . MUSCULOSKELETAL: ANY NEW PATTERNS OF PAIN OR NUMBNESS? NO . GASTROENTEROLOGY: ANY NEW CHANGE IN BOWEL CONTROL? NO . GENITOURINARY: ANY NEW CHANGE IN BLADDER CONTROL? NO . IS THERE A CHANCE YOU COULD BE ? NO . HEMATOLOGY/LYMPH: DO YOU TAKE ANY BLOOD THINNERS? (FOR EXAMPLE- COUMADIN, PLAVIX, AGGRENOX, PLATEL, PRADAXA, OR XARELTO) NO . WHEN WAS YOUR LAST DOSE? DATE: TIME: . NEUROLOGY: HAVE YOU FALLEN IN THE PAST 12 MONTHS? NO . ANY NEW EXTREMITY NUMBNESS OR WEAKNESS? NO . CARDIOLOGY: DO YOU HAVE A PACEMAKER OR DEFIBRILLATOR? NO . RESPIRATORY: HAVE YOU BEEN SICK IN THE PAST WEEK? NO . FEVER NO . FLU LIKE SYMPTOMS? NO . COUGH NO . INTEGUMENTARY: DO YOU HAVE ANY RASHES OR OPEN SORES? NO . ALLERGIC/IMMUNO: ARE YOU ALLERGIC TO IV DYE? NO . ANY NEW ALLERGIES? NO . PSYCHIATRIC: DO YOU HAVE THOUGHTS OF HURTING YOURSELF OR SOMEONE ELSE? NO . ARE YOU ABUSED, NEGLECTED, OR IN AN UNSAFE ENVIRONMENT? NO . ENDOCRINOLOGY: ARE YOU DIABETIC? NO . OTHER: DO YOU NEED ANY PRESCRIPTIONS? NO . IF YES, PLEASE LIST: ____ . ANY NEW PROBLEMS WITH YOUR MEDICATIONS? NO . WHEN DID YOU LAST EAT? 10/06 1999 . WHEN DID YOU LAST DRINK? 10/06 0900 . WHAT DID YOU LAST DRINK? WATER . NAME OF PERSON DRIVING YOU HOME? JOSSE . DO YOU HAVE ANY OTHER QUESTIONS OR CONCERNS NO . VITAL SIGNS WT 205.4 LBS, HT 63 IN, BMI 36.38 INDEX, BP 137/84 MM HG, HR 87 /MIN, RR 18 /MIN, TEMP 98.9 F, OXYGEN SAT % 99%, NA INITIALS AW 1230, REVIEWED BY: ALEX. ASSESSMENTS ENCOUNTER FOR LUMBAR PUNCTURE - Z01.89 (PRIMARY) MS PROTOCOL. TREATMENT ENCOUNTER FOR LUMBAR PUNCTURE CLINICAL NOTES: SPINAL TAP WITH IV SEDATION- PLEASE SEE [facility]. PROCEDURE CODES 49686 SPINAL FLUID TAP DIAGNOSTIC 98847 MOD SED SAME PHYS/QHP 5/>YRS 39042 MOD SED SAME PHYS/QHP EA DISPOSITION & COMMUNICATION FOLLOW UP REASON: F/UP WITH NEUROLOGIST ELECTRONICALLY SIGNED BY SHANT SELF MD, ON 10/16/2018 AT 08:00 PM EDT DISCLAIMER : THIS IS A VISIT SUMMARY EXTRACTED FROM THE [employer] CHART. IT IS NOT A COPY OF THE [employer] PROGRESS NOTE. MTDD
== END ==
LOC: M PAIN 13:00
PROVIDERS: ATTEND Anesthesiology
DX: G35 Multiple sclerosis (principal); I10 Essential (primary) hypertension; G43.909 Migraine, unspecified, not intractable, without status migrainosus; G25.81 Restless legs syndrome; E03.9 Hypothyroidism, unspecified; E55.9 Vitamin D deficiency, unspecified; Z79.899 Other long term (current) drug therapy; Z88.0 Allergy status to penicillin; Z88.8 Allergy status to other drugs, medicaments and biological substances; Z91.09 Other allergy status, other than to drugs and biological substances; Z86.59 Personal history of other mental and behavioral disorders
CPT/HCPCS: 36415; 62270; 82784; 82945; 83916; 84157; 87070; 87102; 87205; 87252; 87483; 88108; 88313; 89050; 99152; 99153; J2250; J3010

== ENCOUNTER → 2018-10-15 | Outpatient (CLI) | payer MEDICAID ==
[~2018-10-15] MED LIST changes: -LIDOCAINE 1% SDV INJ 30 ML VIAL As Ordered ONE; -MIDAZOLAM INJ 2 MG/2 ML VIAL (J2250) As Ordered ONE; -fentaNYL 100 MCG/2 ML INJECTION (J3010) As Ordered ONE
[2018-10-15 13:57] LABS: FOLATE 14.4 NG/ML
[2018-10-22 08:06] LABS: HERPES ZOSTER, VARICELLA IgG 984 index (Immune >165); Lyme Disease IgG/IgM Antibodie <0.91 ISR (0.00-0.90); Lyme Disease IgM Ab Quantitati <0.80 index (0.00-0.79); Methylmalonic Acid 84 nmol/L (0-378)
== END ==
LOC: M WUC 09:41
PROVIDERS: ATTEND Psychiatry & Neurology Neurology
DX: R20.0 Anesthesia of skin (principal); R21 Rash and other nonspecific skin eruption

== ENCOUNTER → 2018-10-15 | Outpatient (CLI) | payer MEDICAID ==
[2018-10-15 13:28] LABS: BASO # 0.1 10^3/uL (0.0-0.2); BASO % 0.8 % (0.0-1.0); EOS # 0.5 10^3/uL (0.0-0.50); EOS % 7.7 % (0.0-3.0); HEMATOCRIT 37.4 % (36.0-47.0); HEMOGLOBIN 11.9 g/dl (12.0-15.5); LYMPH # 2.3 10^3/uL (1.5-4.5); LYMPH % 35.7 % (24.0-44.0); MEAN CORPUSCULAR HEMOGLOBIN 28.8 pg (27.0-33.0); MEAN CORPUSCULAR HGB CONC 31.8 g/dl (32.0-36.5); MEAN CORPUSCULAR VOLUME 90.6 fl (80.0-96.0); MONO # 0.5 10^3/uL (0.0-0.8); MONO % 7.4 % (0.0-5.0); NEUTROPHILS # 3.1 10^3/uL (1.8-7.7); NEUTROPHILS % 48.2 % (36.0-66.0); PLATELET COUNT, AUTOMATED 234 10^3/uL (150-450); RED BLOOD COUNT 4.13 10^6/uL (4.00-5.40); WHITE BLOOD COUNT 6.5 10^3/uL (4.0-10.0)
[2018-10-15 13:54] LABS: HEMOGLOBIN A1c 5.4 %
[2018-10-15 14:14] LABS: CORTISOL AM 11.6 UG/DL (4.3-22.4); VITAMIN B12 LEVEL 1034 PG/ML (247-911)
[2018-10-15 14:25] LABS: FREE T4 1.08 NG/DL (0.76-1.46)
[2018-10-16 14:37] LABS: INSULIN LEVEL 7.5 uIU/mL (2.6-24.9)
[2018-10-17 00:06] LABS: FREE KAPPA LIGHT CHAINS SERUM 16.9 mg/L (3.3-19.4); FREE LAMBDA LIGHT CHAINS SERUM 15.2 mg/L (5.7-26.3); KAPPA/LAMBDA RATIO SERUM 1.11 (0.26-1.65)
[2018-10-19 00:09] LABS: FREE KAPPA LIGHT CHAINS URINE 19.3 mg/L (1.35-24.19); FREE LAMBDA LIGHT CHAINS URINE 1.26 mg/L (0.24-6.66); KAPPA/LAMBDA RATIO URINE 15.32 (2.04-10.37)
== END ==
LOC: M WUC 09:47
PROVIDERS: ATTEND Family Medicine
DX: E53.8 Deficiency of other specified B group vitamins (principal); D75.89 Other specified diseases of blood and blood-forming organs; R73.01 Impaired fasting glucose

== ENCOUNTER 2019-05-20 03:55 | Emergency (ER) | payer BC, MEDICAID ==
[~2019-05-20] VITALS: Ht 162.6 cm; Wt 84.5 kg
[~2019-05-20 03:55] MED LIST changes: -ANTA500C PO; +CALC1CHW3 PO; +VITA100018 PO; -VITA100072 PO
[2019-05-20] MEDS ORDERED: LABE10TAB (04:01)
[2019-05-20] MEDS ORDERED: FERR325T18 (04:01)
[2019-05-20] MEDS ORDERED: PHEN15CA (04:01)
[2019-05-20] MEDS ORDERED: CARV10CA (04:01)
[2019-05-20] MEDS ORDERED: MORPHINE 10 MG/ML 1ML VIAL (J2270) IM ONE (06:15)
[2019-05-20] MEDS ORDERED: BUPIVACAINE HCL 0.25% 10 ML VIAL SC ONE (06:15)
[2019-05-20] MEDS ORDERED: predniSONE 20 MG TAB PO ONE (06:15)
[2019-05-20] MEDS ORDERED: GABA-843 PO (07:32)
[2019-05-20] MEDS ORDERED: PRED10TA2 PO (07:32)
[2019-05-20 07:42] VITALS: BP 145/68
== END 2019-05-20 07:44 | disposition home or self-care (01) ==
LOC: M ED 03:55
DX: M54.10 Radiculopathy, site unspecified (principal); I10 Essential (primary) hypertension; M50.30 Other cervical disc degeneration, unspecified cervical region; Z79.899 Other long term (current) drug therapy; Z79.890 Hormone replacement therapy; Z88.0 Allergy status to penicillin
CPT/HCPCS: 20552; 96372; 99283; J2270

== ENCOUNTER → 2019-07-26 | Outpatient (REF) | payer BC ==
[~2019-07-26] MED LIST changes: +CARV10CA; +FERR325T18; +GABA-843 PO; +LABE10TAB; +PHEN15CA; +PRED10TA2 PO
[2019-07-26 11:41] LABS: INFLUENZA A AMPLIFICATION NEGATIVE (NEGATIVE); INFLUENZA B AMPLIFICATION NEGATIVE (NEGATIVE)
== END ==
LOC: M LAB REF 10:54
PROVIDERS: ATTEND Physician Assistant Medical
DX: J11.1 Influenza due to unidentified influenza virus with other respiratory manifestations (principal)

== ENCOUNTER 2019-09-10 17:46 | Emergency (ER) | payer BC ==
[~2019-09-10] VITALS: Ht 162.6 cm; Wt 86.3 kg
[2019-09-10] MEDS ORDERED: NS 1,000 ML IV ONE (18:15)
[2019-09-10] MEDS ORDERED: PANTOPRAZOLE 40MG INJ (PROTONIX) (C9113) IV ONE (18:15)
[2019-09-10] MEDS ORDERED: KETOROLAC 30 MG/ML VIAL (J1885) IV ONE (18:15)
[2019-09-10] MEDS ORDERED: ONDANSETRON 4MG/2ML VIAL (J2405) IV ONE (18:15)
[2019-09-10 18:32] LABS: BASO % 0.6 % (0.0-1.0); EOS # 0.2 10^3/uL (0.0-0.5); EOS % 4.3 % (0.0-3.0); HEMATOCRIT 43.5 % (36.0-47.0); HEMOGLOBIN 13.8 g/dl (12.0-15.5); LYMPH # 2.2 10^3/uL (1.5-5.0); LYMPH % 45.5 % (24.0-44.0); MEAN CORPUSCULAR HEMOGLOBIN 29.2 pg (27.0-33.0); MEAN CORPUSCULAR HGB CONC 31.7 g/dl (32.0-36.5); MEAN CORPUSCULAR VOLUME 92.2 fl (80.0-96.0); MONO # 0.5 10^3/uL (0.0-0.8); MONO % 10.6 % (0.0-5.0); NEUTROPHILS # 1.9 10^3/uL (1.5-8.5); NEUTROPHILS % 38.8 % (36.0-66.0); PLATELET COUNT, AUTOMATED 212 10^3/uL (150-450); RED BLOOD COUNT 4.72 10^6/uL (4.00-5.40); WHITE BLOOD COUNT 4.9 10^3/uL (4.0-10.0)
[2019-09-10 18:43] LABS: INR 1.03; PROTHROMBIN TIME 13.2 SECONDS (11.8-14.0)
--- NOTE | 2019-09-10 19:15 | REPVR ---
PROCEDURE INFORMATION: Exam: CT Abdomen And Pelvis Without Contrast Exam date and time: 09/10/2019 6:33 PM Age: 34 years old Clinical indication: Abdominal pain; Localized; Left upper quadrant (luq); Additional info: Luq pain TECHNIQUE: Imaging protocol: Computed tomography of the abdomen and pelvis without contrast. Radiation optimization: All CT scans at this facility use at least one of these dose optimization techniques: automated exposure control; mA and/or kV adjustment per patient size (includes targeted exams where dose is matched to clinical indication); or iterative reconstruction. COMPARISON: No relevant prior studies available. FINDINGS: Limited evaluation without enteric or IV contrast. Lungs: No suspicious mass or airspace process in the visualized lung bases. Liver: Noncontrast liver shows no obvious lesion. Gallbladder and bile ducts: Gallbladder is surgically absent. Pancreas: Noncontrast pancreas shows no obvious mass or adjacent fluid. Spleen: Noncontrast spleen shows no obvious focal deformity. Adrenals: Adrenal glands are normal in appearance. Kidneys and ureters: Kidneys are unremarkable aside from nonobstructive left renal stones. Stomach and bowel: No evidence of small bowel obstruction. Sparse colonic diverticula are present without evidence of inflammation. Appendix: Normal caliber appendix is identified, with no adjacent inflammation. Intraperitoneal space: No pneumoperitoneum. Vasculature: No aortic aneurysm. Lymph nodes: No enlarged lymph nodes. Bladder: Urinary bladder appears normal. Reproductive: Bilateral tubal occlusion devices are present. No overt enlargement of the uterus or ovaries. Bones/joints: Bony structures show no acute fracture or destructive process. Soft tissues: Small umbilical hernia containing fat is present and there is a small supraumbilical right paramedian hernia measuring 2 cm, also containing only fat. IMPRESSION: 1. Nonobstructive left renal calculi. No hydronephrosis or ureter stone. 2. Umbilical and right paramedian supraumbilical small ventral hernias, containing only fat. No obvious inflammatory change Electronically signed by: Edward Abdi On 09/10/2019 19:15:01 PM
[2019-09-10 19:18] VITALS: BP 143/94
[2019-09-10 19:42] LABS: ALBUMIN 3.9 GM/DL (3.2-5.2); ALT/SGPT 30 U/L (12-78); BILIRUBIN,DIRECT < 0.1 MG/DL (0.0-0.2); BILIRUBIN,TOTAL 0.5 MG/DL (0.2-1.0); BLOOD UREA NITROGEN 12 MG/DL (7-18); CALCIUM LEVEL 9.5 MG/DL (8.5-10.1); CARBON DIOXIDE LEVEL 29 MEQ/L (21-32); CHLORIDE LEVEL 104 MEQ/L (98-107); CREATININE FOR GFR 0.75 MG/DL (0.55-1.30); GLOMERULAR FILTRATION RATE > 60.0 (>60); GLUCOSE, FASTING 83 MG/DL (70-100); LIPASE 170 U/L (73-393); POTASSIUM SERUM 5.1 MEQ/L (3.5-5.1); SODIUM LEVEL 139 MEQ/L (136-145); TOTAL PROTEIN 7.8 GM/DL (6.4-8.2)
[2019-09-10] MEDS ORDERED: PROT1TAB2 PO (20:02)
[2019-09-10] MEDS ORDERED: ZOFR4TAB16 PO (20:03)
== END 2019-09-10 20:21 | disposition home or self-care (01) ==
LOC: M ED 17:46
DX: R10.10 Upper abdominal pain, unspecified (principal); R11.0 Nausea; I10 Essential (primary) hypertension; E07.9 Disorder of thyroid, unspecified; G89.29 Other chronic pain; Z79.899 Other long term (current) drug therapy; Z79.890 Hormone replacement therapy; Z88.0 Allergy status to penicillin
CPT/HCPCS: 74176; 80048; 80076; 81001; 83605; 83690; 85025; 85610; 96361; 96374; 96375; 99284; C9113; J1885; J2405

== ENCOUNTER → 2019-09-12 | Outpatient (REF) | payer BC ==
[~2019-09-12] MED LIST changes: +PROT1TAB2 PO; +ZOFR4TAB16 PO
[2019-09-12 11:51] LABS: APPEARANCE, URINE CLEAR (CLEAR); BACTERIA, URINE AUTO NEGATIVE (NEGATIVE); BILIRUBIN, URINE AUTO NEGATIVE (NEGATIVE); BLOOD, URINE BLOOD NEGATIVE (NEGATIVE); COLOR, URINE AMBER (YELLOW); GLUCOSE, URINE (UA) AUTO NEGATIVE (NEGATIVE); KETONE, URINE AUTO 2+ mg/dL (NEGATIVE); LEUKOCYTE ESTERASE, URINE AUTO NEGATIVE (NEGATIVE); MUCUS, URINE SMALL (NEGATIVE); NITRITE, URINE AUTO NEGATIVE (NEGATIVE); PROTEIN, URINE AUTO NEGATIVE (NEGATIVE); RBC, URINE AUTO 2 /HPF (0-3); SPECIFIC GRAVITY URINE AUTO 1.025 (1.002-1.035); SQUAMOUS EPITHELIAL CELL UR AU 0 /HPF (0-6); UROBILINOGEN, URINE AUTO 0.2 mg/dL (0.0-2.0); WBC, URINE AUTO 2 /HPF (0-3)
[2019-09-12 12:07] LABS: ALBUMIN 3.8 GM/DL (3.2-5.2); ALT/SGPT 28 U/L (12-78); BILIRUBIN,TOTAL 0.5 MG/DL (0.2-1.0); BLOOD UREA NITROGEN 13 MG/DL (7-18); CALCIUM LEVEL 8.7 MG/DL (8.5-10.1); CARBON DIOXIDE LEVEL 29 MEQ/L (21-32); CHLORIDE LEVEL 103 MEQ/L (98-107); CHOLESTEROL LEVEL 136 MG/DL (<200); CHOLESTEROL RISK RATIO 2.344 (<5); CREATININE FOR GFR 0.82 MG/DL (0.55-1.30); GLOMERULAR FILTRATION RATE > 60.0 (>60); GLUCOSE, FASTING 81 MG/DL (70-100); HDL CHOLESTEROL 58 MG/DL (>40); LDL CHOLESTEROL 67 MG/DL (<100); NON-HDL-C 78 MG/DL; POTASSIUM SERUM 4.4 MEQ/L (3.5-5.1); SODIUM LEVEL 139 MEQ/L (136-145); THYROID STIMULATING HORMONE 0.554 uIU/ML (0.358-3.740); TOTAL PROTEIN 7.3 GM/DL (6.4-8.2); TRIGLYCERIDES LEVEL 55 MG/DL (<150)
[2019-09-12 12:28] LABS: PTH INTACT 75.6 PG/ML (18.5-88.0); THYROID PEROXIDASE ANTIBODY < 28.0 U/ML (<60.0); TOTAL 25(OH) VITAMIN D 54.2 NG/ML (30.0-100.0)
[2019-09-12 12:31] LABS: MALB URINE SIEMENS 32.6 MG/L; MAU/CREAT RATIO 8.8 MCG/MG (0.0-30.0)
[2019-09-12 13:08] LABS: HEMOGLOBIN A1c 5.3 %
== END ==
LOC: M SFHCPLAZ 09:12
PROVIDERS: ATTEND Family Medicine
DX: E03.9 Hypothyroidism, unspecified (principal); E55.9 Vitamin D deficiency, unspecified; E78.5 Hyperlipidemia, unspecified; R73.01 Impaired fasting glucose; Z87.898 Personal history of other specified conditions

== ENCOUNTER → 2019-12-27 | Outpatient (CLI) | payer BC | LOC: M LABSMTC 11:03 | PROVIDERS: ATTEND Anesthesiology | DX: Z01.818 Encounter for other preprocedural examination (principal); Z11.59 Encounter for screening for other viral diseases | CPT/HCPCS: C9803; U0003 ==

== ENCOUNTER → 2019-12-28 | Outpatient (CLI) | payer BC ==
--- NOTE | 2019-12-28 22:04 | ECGEPIP ---
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 Electronically Signed on 12-28-2019 22:04:48 EDT by Timmy Jones
== END ==
LOC: M EKG 17:23
PROVIDERS: ATTEND Anesthesiology
DX: Z01.818 Encounter for other preprocedural examination (principal); R03.0 Elevated blood-pressure reading, without diagnosis of hypertension; E03.9 Hypothyroidism, unspecified

== ENCOUNTER 2019-12-30 09:05 | Day surgery (SDC) | payer BC ==
[~2019-12-30] VITALS: Ht 162.6 cm; Wt 88.5 kg
[~2019-12-30 09:05] MED LIST changes: +CLINDAMYCIN 600 MG in IV 1 EA IV ONE; +LIDOCAINE 1% MDV 20ML VIAL SQ PRN; +LR 1,000 ML IV ONE
[2019-12-30] MEDS ORDERED: ROCURONIUM BROMIDE 50 MG/5 ML VIAL As Ordered ONE (09:54)
[2019-12-30] MEDS ORDERED: ONDANSETRON 4MG/2ML VIAL As Ordered ONE (09:54)
[2019-12-30] MEDS ORDERED: fentaNYL 250 MCG/5 ML INJECTION (J3010) As Ordered ONE (09:54)
[2019-12-30] MEDS ORDERED: dexameTHASONE 4 MG/ML 1ML VIAL (J1100 PER 1MG) As Ordered ONE (09:54)
[2019-12-30] MEDS ORDERED: propofoL 200 MG/20 ML VIAL As Ordered ONE (09:54)
[2019-12-30] MEDS ORDERED: LIDOCAINE 2% 100MG/5ML SDV (FOR ANES.) As Ordered ONE (09:54)
[2019-12-30] MEDS ORDERED: MIDAZOLAM INJ 2MG/2ML VIAL (J2250 PER 1MG) As Ordered ONE (09:55)
[2019-12-30] MEDS ORDERED: BUPIVACAINE/EPIN 0.25% 30 ML VIAL As Ordered ONE (10:46)
[2019-12-30] MEDS ORDERED: HYDROmorphone HCL 2 MG/ML 1ML VIAL (J1170) As Ordered ONE (11:09)
[2019-12-30] MEDS ORDERED: ACETAMINOPHEN 1000MG 100ML IV BTL (OFIRMEV) (J0131 PER 10MG) As Ordered ONE (11:11)
[2019-12-30] MEDS ORDERED: SUGAMMADEX SODIUM 500 MG/5 ML VIAL (BRIDION) As Ordered ONE (11:12)
[2019-12-30] MEDS ORDERED: KETOROLAC 60 MG/2 ML VIAL As Ordered ONE (11:12)
[2019-12-30] MEDS ORDERED: HYDROMORPHONE HCL 0.5 MG/ 0.5 ML SYRINGE (J1170 PER 1) IV PRN (12:45)
[2019-12-30] MEDS ORDERED: NORCO, ANEXSIA 5/325MG TABLET (HYDROcodone/ACETAMINOPHEN) PO PRN (12:45)
[2019-12-30] MEDS ORDERED: LR 1,000 ML IV SCH (12:45)
[2019-12-30] MEDS ORDERED: fentaNYL 100 MCG/2 ML INJECTION (J3010) IV PRN (12:45)
[2019-12-30] MEDS ORDERED: ONDANSETRON 4MG/2ML VIAL IV PRN (12:45)
[2019-12-30] MEDS: oxyCODONE 5MG TAB PO PRN ×2 (13:00→14:23)
[2019-12-30] MEDS ORDERED: METOCLOPRAMIDE INJ 10MG/2ML VIAL (J2765 PER 1) As Ordered ONE (13:26)
[2019-12-30] MEDS ORDERED: METOCLOPRAMIDE INJ 10MG/2ML VIAL (J2765 PER 1) IV PRN (13:45)
[2019-12-30] MEDS ORDERED: oxyCODONE 5MG TAB As Ordered ONE (14:18)
[2019-12-30 15:00] VITALS: BP 114/73
--- NOTE | 2020-01-06 09:37 | RO ---
DATE OF PROCEDURE: 12/30/2019 PREOPERATIVE DIAGNOSIS: Incarcerated incisional hernia x2. POSTOPERATIVE DIAGNOSIS: Incarcerated incisional hernia X2. PROCEDURE: Robotic repair of incarcerated incisional hernias. SURGEON: Dr. Cosme Simon E COMMERCE SOLUTION ARCHITECT: Nelly Ybarra ANESTHESIA: General. ESTIMATED BLOOD LOSS: 5 mL. COMPLICATIONS: None. INDICATIONS FOR PROCEDURE: The patient is a 34-year-old female who presents with abdominal pain and findings of ventral hernia on exam. These were at location of previous surgery. Recommendation was to proceed with robotic repair. Risks and benefits of the procedure not limited to, but including bleeding, infection, hernia recurrence, hernia formation, damage to surrounding structure, need for further surgery were discussed in detail with the patient. Informed consent was obtained and the procedure planned. DESCRIPTION OF PROCEDURE: The patient was brought to operating room seven, after sufficient sedation the abdomen was sterilely prepped and draped. Next, a time out was done to confirm proper patient and proper procedure. Following that, an 8 mm incision made in the left lower quadrant, Veress needle inserted and the abdomen was insufflated to 15 mmHg. The Veress needle was then removed. An 8 mm OptiVu robotic port was used to gain access to the abdomen. Once the abdomen was entered, the sites of hernia were identified. An epigastric and right upper quadrant port were then placed across the upper abdomen. Next, from the inside the abdomen the peritoneum was incised horizontally just superior to both of the hernia sites. There was one in the midepigastric area and one just superior to the umbilicus. Both of these areas were dissected free. Once the hernia sacs were completely reduced, the fascia was closed with a running #0 Stratafix suture, first at the supraumbilical hernia site, followed by the epigastric hernia site. Once the fascial defects were both closed, Stratafix mesh was cut to size. A 2x4 cm mesh was used for the supraumbilical hernia and a 3 cm round piece was used for the epigastric. The mesh were placed over top of the sutured defect. The peritoneum was then approximated over top of the mesh using a running #2-0 V-Loc. Once this was all completed, the abdomen was desufflated. Skin incisions were closed with #4-0 Vicryl subcuticular sutures. The abdomen was cleaned and dried. Steri-Strips, 4x4 and tape were applied, thus ending the procedure.
== END 2019-12-30 15:25 | disposition home or self-care (01) ==
LOC: M SDC 09:05
PROVIDERS: ATTEND Surgery
DX: K43.0 Incisional hernia with obstruction, without gangrene (principal); I10 Essential (primary) hypertension; E03.9 Hypothyroidism, unspecified; F41.9 Anxiety disorder, unspecified; F32.9 Major depressive disorder, single episode, unspecified; G43.909 Migraine, unspecified, not intractable, without status migrainosus; Z79.899 Other long term (current) drug therapy; Z88.0 Allergy status to penicillin
CPT/HCPCS: 49653; C1781; J0131; J1100; J1170; J1885; J2250; J2405; J2765; J3010

== ENCOUNTER → 2020-10-02 | Outpatient (CLI) | payer BC ==
[~2020-10-02] MED LIST changes: -CLINDAMYCIN 600 MG in IV 1 EA IV ONE; +GABA-282 PO; -GABA-843 PO; +LABE100T4; -LABE10TAB; -LIDOCAINE 1% MDV 20ML VIAL SQ PRN; -LR 1,000 ML IV ONE; +PROHANCE 279.3MG/ML 15ML VIAL As Ordered ONE; +PROHANCE 279.3MG/ML 5ML VIAL As Ordered ONE
--- NOTE | 2020-10-02 18:14 | REPVR ---
PROCEDURE INFORMATION: Exam: MR Head Without and With Contrast Exam date and time: 10/02/2020 5:22 PM Age: 35 years old Clinical indication: Other: H/o paresthesia TECHNIQUE: Imaging protocol: MR of the head without and with intravenous contrast. Contrast material: PROHANCE; Contrast volume: 17 ml; Contrast route: INTRAVENOUS (IV); COMPARISON: MRI-Brain W/O FOLL BY WITH 01/27/2018 4:05 PM FINDINGS: Brain: Normal. No acute infarct. No hemorrhage. No significant white matter disease. No edema. No abnormal enhancement. Stable appearance of small foci of T2 lengthening in the subcortical aspect of the frontal lobes again redemonstrated. Cerebral ventricles: Normal. No ventriculomegaly. Bones/joints: Unremarkable. Paranasal sinuses: Normal as visualized. No acute sinusitis. Mastoid air cells: Normal as visualized. No mastoid effusion. Orbital cavity: Unremarkable. Soft tissues: Unremarkable. IMPRESSION: No acute findings. Electronically signed by: Wilber Baez On 10/02/2020 18:15:03 PM
== END ==
LOC: M RAD 16:25
PROVIDERS: ATTEND Family Medicine
DX: Z87.898 Personal history of other specified conditions (principal)
CPT/HCPCS: 70553; A9576

== ENCOUNTER → 2021-02-25 | Outpatient (CLI) | payer BC ==
[~2021-02-25] MED LIST changes: -PROHANCE 279.3MG/ML 15ML VIAL As Ordered ONE; -PROHANCE 279.3MG/ML 5ML VIAL As Ordered ONE
[2021-02-25 13:58] LABS: BASO # 0.1 10^3/uL (0.0-0.2); EOS # 0.3 10^3/uL (0.0-0.5); EOS % 5.2 % (0.0-3.0); HEMATOCRIT 40.3 % (36.0-47.0); HEMOGLOBIN 13.3 g/dl (12.0-15.5); LYMPH % 32.4 % (24.0-44.0); MEAN CORPUSCULAR HEMOGLOBIN 30.5 pg (27.0-33.0); MEAN CORPUSCULAR VOLUME 92.4 fl (80.0-96.0); MONO # 0.5 10^3/uL (0.0-0.8); MONO % 7.4 % (2.0-8.0); NEUTROPHILS # 3.3 10^3/uL (1.5-8.5); NEUTROPHILS % 53.7 % (36.0-66.0); PLATELET COUNT, AUTOMATED 221 10^3/uL (150-450); RED BLOOD COUNT 4.36 10^6/uL (4.00-5.40); WHITE BLOOD COUNT 6.2 10^3/uL (4.0-10.0)
[2021-02-25 14:13] LABS: HEMOGLOBIN A1c 5.1 %
[2021-02-25 14:34] LABS: ALT/SGPT 29 U/L (12-78); BILIRUBIN,TOTAL 0.4 MG/DL (0.2-1.0); BLOOD UREA NITROGEN 17 MG/DL (7-18); CALCIUM LEVEL 9.6 MG/DL (8.5-10.1); CARBON DIOXIDE LEVEL 27 MEQ/L (21-32); CHLORIDE LEVEL 107 MEQ/L (98-107); CHOLESTEROL LEVEL 212 MG/DL (<200); CHOLESTEROL RISK RATIO 3.072 (<5); CREATININE FOR GFR 0.67 MG/DL (0.55-1.30); FERRITIN 32 NG/ML (8-252); FREE T4 1.08 NG/DL (0.76-1.46); GLOMERULAR FILTRATION RATE > 60.0 (>60); GLUCOSE, FASTING 81 MG/DL (70-100); HDL CHOLESTEROL 69 MG/DL (>40); LDL CHOLESTEROL 134 MG/DL (<100); NON-HDL-C 143 MG/DL; POTASSIUM SERUM 4.7 MEQ/L (3.5-5.1); PTH INTACT 32.4 PG/ML (18.5-88.0); SODIUM LEVEL 140 MEQ/L (136-145); THYROID PEROXIDASE ANTIBODY < 28.0 U/ML (<60.0); TOTAL 25(OH) VITAMIN D 29.6 NG/ML (30.0-100.0); TOTAL PROTEIN 7.4 GM/DL (6.4-8.2); TRIGLYCERIDES LEVEL 46 MG/DL (<150); VITAMIN B12 LEVEL 513 PG/ML (247-911)
== END ==
LOC: M PLALAB 09:49
PROVIDERS: ATTEND Family Medicine
DX: D75.89 Other specified diseases of blood and blood-forming organs (principal); R73.01 Impaired fasting glucose; E03.9 Hypothyroidism, unspecified

== ENCOUNTER → 2021-07-08 | Outpatient (CLI) | payer BC ==
--- NOTE | 2021-07-09 02:37 | REP ---
INDICATION: BILATERAL PRIMARY OSTEOARTHRITIS OF KNEE COMPARISON: None. TECHNIQUE: AP, lateral, bilateral oblique and sunrise views right and left knee. FINDINGS: The bilateral tibiofemoral joint spaces are intact, symmetric and normal. Tanana views demonstrates subtle increased sclerosis along the patellar margins with very minimal patellofemoral joint space narrowing and tiny early lateral spurring (right greater than left). No evidence for acute or healed injury. No effusion.. IMPRESSION: Very minimal changes involving the bilateral patellofemoral joint spaces. <Electronically signed by Christofer Costa > 07/09/21 2130
== END ==
LOC: M PLAIMG 14:35
PROVIDERS: ATTEND Family Medicine
DX: M17.0 Bilateral primary osteoarthritis of knee (principal)

== ENCOUNTER → 2022-10-06 | Outpatient (CLI) | payer BC ==
[~2022-10-06] MED LIST changes: -LABE100T4; +LABE100T6; -PHEN15CA; +PHEN15CA6
[2022-10-06 11:22] LABS: BASO # 0.1 10^3/uL (0.0-0.2); BASO % 0.7 % (0.0-1.0); EOS # 0.4 10^3/uL (0.0-0.5); EOS % 5.7 % (0.0-3.0); HEMATOCRIT 38.9 % (36.0-47.0); HEMOGLOBIN 12.3 g/dl (12.0-15.5); LYMPH # 1.9 10^3/uL (1.5-5.0); LYMPH % 27.1 % (24.0-44.0); MEAN CORPUSCULAR HEMOGLOBIN 29.5 pg (27.0-33.0); MEAN CORPUSCULAR HGB CONC 31.6 g/dl (32.0-36.5); MEAN CORPUSCULAR VOLUME 93.3 fl (80.0-96.0); MONO # 0.6 10^3/uL (0.0-0.8); MONO % 8.3 % (2.0-8.0); NEUTROPHILS # 4.1 10^3/uL (1.5-8.5); NEUTROPHILS % 57.9 % (36.0-66.0); PLATELET COUNT, AUTOMATED 236 10^3/uL (150-450); RED BLOOD COUNT 4.17 10^6/uL (4.00-5.40)
[2022-10-06 11:25] LABS: ALBUMIN 3.6 G/DL (3.2-5.2); ALKALINE PHOSPHATASE 54 U/L (46-116); ALT/SGPT 31 U/L (7.0-40); AST/SGOT 18 U/L (<34); BILIRUBIN,TOTAL 0.4 MG/DL (0.3-1.2); BLOOD UREA NITROGEN 15 MG/DL (9-23); CALCIUM LEVEL 8.9 MG/DL (8.5-10.1); CARBON DIOXIDE LEVEL 27 MMOL/L (20-31); CHLORIDE LEVEL 105 MMOL/L (98-107); CHOLESTEROL LEVEL 169 MG/DL (<200); CHOLESTEROL RISK RATIO 2.55 (<5); CREATININE FOR GFR 0.69 MG/DL (0.55-1.30); GLOMERULAR FILTRATION RATE > 60.0 (>60); GLUCOSE, FASTING 96 MG/DL (60-100); HDL CHOLESTEROL 66.1 MG/DL (>40); LDL CHOLESTEROL 91.3 MG/DL (<100); NON-HDL-C 103 MG/DL; POTASSIUM SERUM 4.3 MMOL/L (3.5-5.1); SODIUM LEVEL 140 MMOL/L (136-145); TOTAL PROTEIN 6.6 G/DL (5.7-8.2); TRIGLYCERIDES LEVEL 58 MG/DL (<150)
[2022-10-06 11:27] LABS: FREE T4 0.98 NG/DL (0.89-1.76); THYROID STIMULATING HORMONE 2.404 uIU/ML (0.55-4.78)
[2022-10-07 08:09] LABS: INSULIN LEVEL 6.4 uIU/mL (2.6-24.9)
== END ==
LOC: M PLALAB 07:30
PROVIDERS: ATTEND Family Medicine
DX: I10 Essential (primary) hypertension (principal)
CPT/HCPCS: 36415; 80053; 80061; 83036; 83525; 83880; 84439; 84443; 85025; G0480

== ENCOUNTER → 2023-08-25 | Outpatient (CLI) | payer BC ==
[~2023-08-25] MED LIST changes: +RIZA10TA64 PO
== END ==
LOC: M WHC 09:02
PROVIDERS: ATTEND Family Medicine
DX: Z12.31 Encounter for screening mammogram for malignant neoplasm of breast (principal); Z53.9 Procedure and treatment not carried out, unspecified reason

== ENCOUNTER 2023-09-02 17:38 | Emergency (ER) | payer BC ==
[~2023-09-02] VITALS: Ht 162.6 cm; Wt 84.9 kg
[~2023-09-02 17:38] MED LIST changes: -RIZA10TA64 PO
[2023-09-02 18:38] LABS: BASO # 0.1 10^3/uL (0.0-0.2); BASO % 0.8 % (0.0-1.0); EOS # 0.4 10^3/uL (0.0-0.5); LYMPH # 2.4 10^3/uL (1.5-5.0); LYMPH % 32.9 % (24.0-44.0); MEAN CORPUSCULAR HEMOGLOBIN 30.8 pg (27.0-33.0); MEAN CORPUSCULAR HGB CONC 33.3 g/dl (32.0-36.5); MEAN CORPUSCULAR VOLUME 92.3 fl (80.0-96.0); MONO # 0.6 10^3/uL (0.0-0.8); MONO % 8.2 % (2.0-8.0); NEUTROPHILS # 3.8 10^3/uL (1.5-8.5); PLATELET COUNT, AUTOMATED 247 10^3/uL (150-450); WHITE BLOOD COUNT 7.2 10^3/uL (4.0-10.0)
[2023-09-02 18:43] LABS: ERYTHROCYTE SEDIMENTATION RATE 18 mm/hr (0-20)
[2023-09-02 18:57] LABS: C REACTIVE PROTEIN QUANTITATIV < 0.40 MG/DL (<1.0); MAGNESIUM LEVEL 1.9 MG/DL (1.8-2.4)
[2023-09-02 18:59] LABS: SALICYLATE LEVEL < 3.0 MG/DL (<30)
[2023-09-02 19:00] LABS: THYROID STIMULATING HORMONE 2.576 uIU/ML (0.55-4.78)
[2023-09-02] MEDS ORDERED: diphenhydrAMINE 50MG/ML VIAL IV ONE (19:15)
[2023-09-02] MEDS ORDERED: KETOROLAC 30 MG/ML 1ML VIAL IV ONE (19:15)
[2023-09-02] MEDS ORDERED: NS 1,000 ML IV ONE (19:15)
[2023-09-02] MEDS ORDERED: METOCLOPRAMIDE INJ 10MG/2ML VIAL IV ONE (19:15)
[2023-09-02] MEDS ORDERED: ACETAMINOPHEN *IV* 1,000 MG in IV 1 EA IV ONE (20:15)
[2023-09-02 21:06] VITALS: BP 144/89; TEMP 97.3; O2SAT 100
[2023-09-02] MEDS ORDERED: RIZA10TA64 PO (21:34)
== END 2023-09-02 22:03 | disposition home or self-care (01) ==
LOC: M ED 17:38
DX: R51.9 Headache, unspecified (principal); I10 Essential (primary) hypertension; Z79.899 Other long term (current) drug therapy; Z88.0 Allergy status to penicillin
CPT/HCPCS: 70450; 80047; 80143; 83735; 84443; 85025; 85652; 86140; 96361; 96365; 96375; 99284; J0131; J1100; J1200; J1885; J2765

== ENCOUNTER → 2024-03-07 | Outpatient (REF) | payer BC ==
[~2024-03-07] MED LIST changes: +RIZA10TA64 PO
== END ==
LOC: M SFHCPLAZ 15:48
PROVIDERS: ATTEND Family Medicine
DX: D50.9 Iron deficiency anemia, unspecified (principal); E53.8 Deficiency of other specified B group vitamins; E03.9 Hypothyroidism, unspecified; R73.01 Impaired fasting glucose; E55.9 Vitamin D deficiency, unspecified

== ENCOUNTER → 2024-03-07 | Outpatient (CLI) | payer BC ==
[2024-03-07 18:36] LABS: BASO # 0.1 10^3/uL (0.0-0.2); BASO % 0.9 % (0.0-1.0); EOS # 0.4 10^3/uL (0.0-0.5); EOS % 5.5 % (0.0-3.0); HEMATOCRIT 40.2 % (36.0-47.0); HEMOGLOBIN 13.3 g/dl (12.0-15.5); LYMPH # 2.7 10^3/uL (1.5-5.0); LYMPH % 34.9 % (24.0-44.0); MEAN CORPUSCULAR HEMOGLOBIN 30.6 pg (27.0-33.0); MEAN CORPUSCULAR HGB CONC 33.1 g/dl (32.0-36.5); MEAN CORPUSCULAR VOLUME 92.4 fl (80.0-96.0); MONO # 0.6 10^3/uL (0.0-0.8); MONO % 7.9 % (2.0-8.0); NEUTROPHILS # 3.9 10^3/uL (1.5-8.5); NEUTROPHILS % 50.5 % (36.0-66.0); PLATELET COUNT, AUTOMATED 251 10^3/uL (150-450); RED BLOOD COUNT 4.35 10^6/uL (4.00-5.40); WHITE BLOOD COUNT 7.6 10^3/uL (4.0-10.0)
[2024-03-07 18:55] LABS: CHOLESTEROL RISK RATIO 2.57 (<5); HDL CHOLESTEROL 72.6 MG/DL (>40); LDL CHOLESTEROL 98.6 MG/DL (<100); NON-HDL-C 114.4 MG/DL; PTH INTACT 65.5 PG/ML (18.5-88.0)
[2024-03-07 18:59] LABS: FREE T4 1.09 NG/DL (0.89-1.76)
[2024-03-07 19:00] LABS: FERRITIN 10.4 NG/ML (7.3-270.7); FOLLICLE STIMULATING HORMONE 3.5 mIU/ML; THYROID STIMULATING HORMONE 2.251 uIU/ML (0.55-4.78)
[2024-03-07 19:01] LABS: LUTEINIZING HORMONE 2.5 mIU/ML; TOTAL 25(OH) VITAMIN D 28.3 NG/ML (20.0-100.0)
== END ==
LOC: M PLALAB 16:12
PROVIDERS: ATTEND Family Medicine
DX: R73.01 Impaired fasting glucose (principal)